=== PATIENT | female | born 1990 | race Caucasian/White ===

== ENCOUNTER 2019-02-26 19:28 | Emergency (ER) | payer MEDICAID ==
--- NOTE | 2019-02-26 20:21 | EDM.PDOC ---
ED HPI GENERAL MEDICAL PROBLEM - General Chief Complaint: Abdominal Pain Stated Complaint: ABDOMINAL PAIN Time Seen by Provider: 02/26/19 19:45 Source of Information: Reports: Patient, RN Notes Reviewed History Limitations: Reports: No Limitations - History of Present Illness INITIAL COMMENTS - FREE TEXT/NARRATIVE: Patient is a 28-year-old female who presents to the ED today for the evaluation of lower abdominal pain. She notes this started yesterday, mainly on the left side of her belly with some radiation to her bellybutton, but now her pain is on both sides of her lower abdomen. She notes that she recently had a copper IUD placed roughly [address] Guardado at [facility]. This procedure went without complications. She notes the pain to be sharp in nature and this comes and goes in waves, she states however when it comes back it is worse than it was in times prior. She denies any fever/chills, nausea/vomiting/diarrhea, chest pain, shortness of breath. She states she did have a normal bowel movement today. She thought maybe this could be due to gas pains, and was taking some Gas-X pills and did take 1 dose of ibuprofen yesterday for pain relief. However these did not provide much pain relief. She denies any sexual intercourse after the procedure. She further denies any dysuria/urinary frequency or urgency, or vaginal discharge or profuse vaginal bleeding. The patient does not note the start of any new medications or supplements nor the discontinuation of any medications or supplements. 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 Abdomen Pain Score (Numeric/FACES): 6 Past Medical History - Past Health History Medical/Surgical History: Denies Medical/Surgical History Social & Family History - Tobacco Use Smoking Status *Q: Never Smoker - Recreational Drug Use Recreational Drug Use: No ED ROS GENERAL - Review of Systems Review Of Systems: See Below Constitutional: Denies: Fever, Chills HEENT: Reports: No Symptoms Respiratory: Reports: No Symptoms Cardiovascular: Reports: No Symptoms Endocrine: Reports: No Symptoms GI/Abdominal: Reports: Abdominal Pain (lower abdominal pain). Denies: Black Stool, Bloody Stool, Constipation, Diarrhea, Nausea, Vomiting : Reports: No Symptoms Musculoskeletal: Reports: Back Pain (low back pain) Skin: Reports: No Symptoms Neurological: Reports: No Symptoms Psychiatric: Reports: No Symptoms Hematologic/Lymphatic: Reports: No Symptoms Immunologic: Reports: No Symptoms ED EXAM, GI/ABD - Physical Exam Exam: See Below Exam Limited By: No Limitations General Appearance: Alert, WD/WN, No Apparent Distress Eyes: Bilateral: Normal Appearance Respiratory/Chest: No Respiratory Distress, Lungs Clear, Normal Breath Sounds, No Accessory Muscle Use, Chest Non-Tender Cardiovascular: Normal Peripheral Pulses, Regular Rate, Rhythm, No Murmur GI/Abdominal Exam: Normal Bowel Sounds, Soft, No Organomegaly, No Distention, No Mass, Tender (She is tender in the lower abdomen, she states that when I press on the suprapubic region that the pain radiates up to her belly button. She states that she also has some increased tenderness in the right lower quadrant with palpation.) Back Exam: Normal Inspection, Full Range of Motion Extremities: Normal Inspection, Normal Capillary Refill Neurological: Alert, Oriented, Normal Cognition, No Motor/Sensory Deficits Psychiatric: Normal Affect, Normal Mood Skin Exam: Warm, Dry, Intact, Normal Color, No Rash Course - Vital Signs Last Recorded V/S: Last Vital Signs Temp 97.6 F 02/26/19 19:40 Pulse 74 02/26/19 19:40 Resp BP 128/106 H 02/26/19 19:40 Pulse Ox 97 02/26/19 19:40 - Orders/Labs/Meds Labs: Laboratory Tests 02/26/19 02/26/19 02/26/19 Range/Units 19:58 19:58 20:13 WBC 10.55 H (3.98-10.04) K/mm3 RBC 4.01 (3.98-5.22) M/mm3 Hgb 11.6 (11.2-15.7) gm/L Hct 35.3 (34.1-44.9) % MCV 88.0 (79.4-94.8) fl MCH 28.9 (25.6-32.2) pg MCHC 32.9 (32.2-35.5) g/dl RDW Std Deviation 45.5 (36.4-46.3) fL Plt Count 278 (182-369) K/mm3 MPV 11.1 (9.4-12.3) fl Neutrophils % (Manual) 65 H (40-60) % Band Neutrophils % 1 (0-10) % Lymphocytes % (Manual) 23 (20-40) % Atypical Lymphs % 0 % Monocytes % (Manual) 7 (2-10) % Eosinophils % (Manual) 4 (0.7-5.8) % Basophils % (Manual) 0 L (0.1-1.2) Platelet Estimate Adequate RBC Morph Comment Normal Sodium (136-145) mEq/L Potassium (3.5-5.1) mEq/L Chloride (98-107) mEq/L Carbon Dioxide (21-32) mEq/L Anion Gap (5-15) BUN (7-18) mg/dL Creatinine (0.55-1.02) mg/dL Est Cr Clr Drug Dosing mL/min Estimated GFR (MDRD) (>60) mL/min BUN/Creatinine Ratio (14-18) Glucose (74-106) mg/dL Calcium (8.5-10.1) mg/dL Total Bilirubin (0.2-1.0) mg/dL AST (15-37) U/L ALT (14-59) U/L Alkaline Phosphatase (46-116) U/L C-Reactive Protein (<1.0) mg/dL Total Protein (6.4-8.2) g/dl Albumin (3.4-5.0) g/dl Globulin gm/dL Albumin/Globulin Ratio (1-2) Urine Color Yellow (Yellow) Urine Appearance Clear (Clear) Urine pH 6.0 (5.0-8.0) Ur Specific [place] 1.025 (1.005-1.030) Urine Protein Negative (Negative) Urine Glucose (UA) Negative (Negative) Urine Ketones Negative (Negative) Urine Occult Blood Negative (Negative) Urine Nitrite Negative (Negative) Urine Bilirubin Negative (Negative) Urine Urobilinogen 0.2 (0.2-1.0) Ur Leukocyte Esterase Negative (Negative) Urine RBC 0-5 (0-5) /hpf Urine WBC 0-5 (0-5) /hpf Ur Epithelial Cells 0-5 (0-5) /hpf Amorphous Sediment Rare H (NOT SEEN) /hpf Urine Bacteria Few (FEW) /hpf Urine Mucus Not seen (FEW) /hpf Urine HCG, Qual Negative (NEGATIVE) 02/26/19 Range/Units 20:13 WBC (3.98-10.04) K/mm3 RBC (3.98-5.22) M/mm3 Hgb (11.2-15.7) gm/L Hct (34.1-44.9) % MCV (79.4-94.8) fl MCH (25.6-32.2) pg MCHC (32.2-35.5) g/dl RDW Std Deviation (36.4-46.3) fL Plt Count (182-369) K/mm3 MPV (9.4-12.3) fl Neutrophils % (Manual) (40-60) % Band Neutrophils % (0-10) % Lymphocytes % (Manual) (20-40) % Atypical Lymphs % % Monocytes % (Manual) (2-10) % Eosinophils % (Manual) (0.7-5.8) % Basophils % (Manual) (0.1-1.2) Platelet Estimate RBC Morph Comment Sodium 141 (136-145) mEq/L Potassium 3.7 (3.5-5.1) mEq/L Chloride 107 (98-107) mEq/L Carbon Dioxide 27 (21-32) mEq/L Anion Gap 10.7 (5-15) BUN 9 (7-18) mg/dL Creatinine 1.0 (0.55-1.02) mg/dL Est Cr Clr Drug Dosing 77.01 mL/min Estimated GFR (MDRD) > 60 (>60) mL/min BUN/Creatinine Ratio 9.0 L (14-18) Glucose 99 (74-106) mg/dL Calcium 9.0 (8.5-10.1) mg/dL Total Bilirubin 0.3 (0.2-1.0) mg/dL AST 8 L (15-37) U/L ALT 20 (14-59) U/L Alkaline Phosphatase 56 (46-116) U/L C-Reactive Protein 1.9 H* (<1.0) mg/dL Total Protein 7.7 (6.4-8.2) g/dl Albumin 3.9 (3.4-5.0) g/dl Globulin 3.8 gm/dL Albumin/Globulin Ratio 1.0 (1-2) Urine Color (Yellow) Urine Appearance (Clear) Urine pH (5.0-8.0) Ur Specific [place] (1.005-1.030) Urine Protein (Negative) Urine Glucose (UA) (Negative) Urine Ketones (Negative) Urine Occult Blood (Negative) Urine Nitrite (Negative) Urine Bilirubin (Negative) Urine Urobilinogen (0.2-1.0) Ur Leukocyte Esterase (Negative) Urine RBC (0-5) /hpf Urine WBC (0-5) /hpf Ur Epithelial Cells (0-5) /hpf Amorphous Sediment (NOT SEEN) /hpf Urine Bacteria (FEW) /hpf Urine Mucus (FEW) /hpf Urine HCG, Qual (NEGATIVE) - Re-Assessments/Exams Free Text/Narrative Re-Assessment/Exam: 02/26/19 20:22 Patient presents to the ED for the evaluation of lower abdominal pain. Have ordered a UA, CBC, CMP, CRP and a qualitative hCG level for further evaluation of her abdominal pain. She did just have this IUD placed that I am unsure if this is just cramping associated with the new IUD placed or something more worrisome. 02/26/19 21:22 Patient's labs have returned and her UA is unremarkable for any bacterial infection at this time, her other labs are back as well, her white blood cell count is slightly elevated at 10.9, CRP is minimally elevated at 1.9. I am wondering if her pain is not due to pelvic cramping due to the IUD insertion 2 days ago. I will provide general recommendations to the patient and have her follow up with the [employer] [facility] on Thursday if the pain is not much better. Departure - Departure Time of Disposition: 21:24 Disposition: Home, Self-Care 01 Condition: Fair Clinical Impression: Bilateral lower abdominal pain - Discharge Information *PRESCRIPTION DRUG MONITORING PROGRAM REVIEWED*: No *COPY OF PRESCRIPTION DRUG MONITORING REPORT IN PATIENT IRASEMA: No Instructions: Abdominal Pain, Adult, [id number] Referrals: Lyudmila Guardado MD [Primary Care Provider] - Forms: ED Department Discharge Care Plan Goals: You have been evaluated in the ED tonight for your lower abdominal pain. Pelvic cramping is normal after IUD insertion, this is a very common side effect of IUD placement. Your labs did not demonstrate any sign of acute bacterial infection at this time. Your white blood cell count was slightly elevated, this may be due to a stress reaction after you underwent the IUD insertion. You may take 500 mg Tylenol or 600 mg ibuprofen every 6 hours in an alternating fashion for pain relief. You may also use a heat pack as tolerated to your lower abdomen to provide further pain relief. Recommend that you follow up with [employer] [facility], Dr. Guardado on Thursday if your pain is not much better. He is return to the ED if your symptoms change or worsen.
== END 2019-02-26 21:43 | disposition home or self-care (01) ==
LOC: JD.ED 19:28
DX: R10.31 Right lower quadrant pain (principal); R10.32 Left lower quadrant pain
CPT/HCPCS: 36415; 80053; 81001; 81025; 85007; 85027; 86140; 99282; 99284

== ENCOUNTER 2023-11-30 23:39 | Emergency (ER) | payer MEDICAID ==
[2023-11-30] MEDS ORDERED: Lidocaine 1% with EPINEPHrine 1:100,000 10 ML MDV INJECT ONE (23:54)
[2023-12-01] MEDS ORDERED: Diphtheria,Pertussis(Acell),Tetanus Vaccine 0.5 ML Syringe IM ONE (00:03)
== END 2023-12-01 00:21 | disposition home or self-care (01) ==
LOC: JD.ED 23:39
DX: S01.81XA Laceration without foreign body of other part of head, initial encounter (principal); W01.110A Fall on same level from slipping, tripping and stumbling with subsequent striking against sharp glass, initial encounter
CPT/HCPCS: 12011; 90471; 90715; 99282-25; 99283